=== PATIENT | female | born 1955 | race Caucasian/White ===

== ENCOUNTER 2020-02-11 00:08 | Outpatient (CLI) | payer OTHER, SELFPAY ==
[2020-02-11 16:10] LABS: SARS-CoV-2 RNA PCR Negative
== END 2020-02-11 00:09 | disposition home or self-care (01) ==
LOC: ANHCOVIDDT 00:08
PROVIDERS: PCP Internal Medicine; Visit Provider Orthopaedic Surgery
DX: Z01.818 Encounter for other preprocedural examination (principal); Z11.59 Encounter for screening for other viral diseases
CPT/HCPCS: 87635; C9803; U0003

== ENCOUNTER 2020-02-13 01:08 | Day surgery (SDC) | payer OTHER, SELFPAY ==
[2020-02-04 15:13] VITALS: BMI 44.1
[2020-02-13] VITALS (9 sets, daily range): BP systolic 157–204; BP diastolic 91–109; PULSE 70–100; RESP 11–20; TEMP 36.7–37.4; O2SAT 97–99
[2020-02-13] MEDS: CELECOXIB 200 MG CAPSULE PO (06:15)
[2020-02-13] MEDS: LACTATED RINGERS 1,000 ML 30 ML IV CONT (06:40)
--- NOTE | 2020-02-13 07:01 | WPDANESEPPF ---
Anes - Initial Pre Proc Eval Procedure: Operation Date: 02/13/20 07:30 Proposed Procedures p Left Knee Arthroscopy, Possible Lateral Release, Proceed As Indicated - Cristhian Muñiz MD Date/Time: 02/13/20 07:01 Surgeon: Cristhian Muñiz MD Pre Op Diagnosis: Left Knee Severe Chondromalacia Of Patella Patient Data Age: 64 Gender: F Height: 5 ft 8 in Weight: 128 kg Allergies Allergy/AdvReac Type Severity Reaction Status Date / Time Penicillins Allergy Severe Difficulty Verified 02/13/20 06:29 Breathing Home Medications Medication Instructions Recorded Confirmed Type aspirin 81 mg tablet,delayed 81 mg PO DAILY 08/07/19 02/13/20 History release cyclobenzaprine 10 mg tablet 10 mg PO TID 08/07/19 02/13/20 History lisinopril 40 mg tablet 40 mg PO DAILY 08/07/19 02/13/20 History tramadol 50 mg tablet 50 mg PO Q6H PRN #30 tablet 12/19/19 02/13/20 Rx clonidine HCl 0.2 mg PO BID 02/04/20 02/13/20 History gabapentin 900 mg PO TID 02/04/20 02/13/20 History trazodone 150 mg PO HS 02/04/20 02/13/20 History Patient hx anesthesia problems: none Family hx anesthesia problems: none PMFSH Past Medical History Medical History Chondromalacia patellae, left knee Right ankle pain Surgical History Surgical History History of ankle surgery S/P ankle fusion Family History Family History Other Family history of arthritis Family history of malignant neoplasm Hypertension Social History Social History Smoking status: Former smoker Smoking end date: 09/19/10 Alcohol intake: never Anes - Eval Final PreProcedure Day of Procedure 02/13/20 07:01 Patient weight: morbidly obese Heart: regular rate and rhythm Lungs: decreased breath sounds Airway: Mallampati scale class III Neurological: alert and oriented Last oral intake: >/= 8 hours ASA classification: III Emergent: no Anesthetic plan: proceed Anesthesia type and monitoring: general LMA and standard monitoring Informed Consent: The patient's anesthetic plan and its attendant risks and benefits were discussed with the patient/family/POA. Questions were solicited and answers provided to the satisfaction of the patient/family/POA.
--- NOTE | 2020-02-13 07:37 | WPDHPUPDATE1 ---
History and Physical Update Update Date/Time: 02/13/20 07:37 History and Physical has been reviewed, including an updated exam of the patient. There are NO changes in the patient's condition. Risks, benefits, and alternatives have been discussed and questions answered. Patient agrees to proceed with procedure.
[2020-02-13] MEDS: CLINDAMYCIN 900 MG/NS 50 ML 900 MG/50 ML PIGGYBACK 50 MG IVPB (07:44)
--- NOTE | 2020-02-13 09:34 | PM.OP ---
Procedure Note - Brief Procedure Note - Brief Date of procedure: 02/13/20 Pre-op diagnosis: Left Knee Severe Chondromalacia Of Patella Post-op diagnosis: other (MEDIAL MENISCUS TEAR, LATERAL MENISCUS TEAR) Procedure performed: LEFT KNEE SCOPE Anesthesia: GETA Surgeon: Cristhian Muñiz MD Estimated blood loss (mL): 5 Complications: No immediate complications Condition: stable Disposition: PACU
[2020-02-13] MEDS: LABETALOL HCL INJ 100 MG/20 ML VIAL IV PUSH (10:24)
--- NOTE | 2020-02-13 10:54 | SUR.PHASEII ---
1025 HIGH BP 204/103,CALLED DR LEONARD ,ORDERS RECEIVED AND LABETOLOL GIVEN.
--- NOTE | 2020-02-13 12:17 | OP_ITS ---
DATE OF PROCEDURE: 02/13/2020 PREOPERATIVE DIAGNOSIS: Left knee severe chondromalacia. POSTOPERATIVE DIAGNOSIS: Left knee severe chondromalacia with medial meniscus tear and lateral meniscus tear. PROCEDURE: Left knee arthroscopy with partial medial meniscectomy, partial lateral meniscectomy, major synovectomy,and chondroplasty. ANESTHESIA: General. COMPLICATIONS: None. INDICATIONS: This is a 64-year-old female with severe chondromalacia of the patella. She had tried physical therapy and pain medication. She was unable to control her pain. She was indicated for left knee arthroscopy. DESCRIPTION OF PROCEDURE: The patient was taken to the operative room in stable condition and placed in supine position. General anesthesia was induced and the left lower extremity was prepped and draped sterilely from the toes to the thigh. Superomedial portal was used for an outflow cannula. Inferolateral portal was used for the camera and the camera was introduced. There was a significant amount of synovitis without the whole superior compartment and the medial compartment. The patella had severe chondromalacia. There was full-thickness bone loss on the lateral trochlea of the femur. The medial compartment was entered, there was a complex tear of the medial meniscus. A medial portal was established. A shaver and a biter were introduced and the medial meniscus tear, which was resected down to a smooth base. Limited chondroplasty was performed as well on the medial femoral condyle. Next, the ACL was identified and it was intact. Lateral compartment was entered, there was significant amount of synovitis in the lateral compartment that was resected with a shaver. The lateral meniscus was preserved, there was a complex tear of the lateral meniscus. This tear was resected with a shaver and a biter until there was a smooth base. Then, limited chondroplasty was performed on the lateral femoral condyle. Next, the synovectomy was performed in the superomedial compartment and then, the patella underwent chondroplasty down to a smooth base. The trochlea underwent chondroplasty as well as the femoral groove down to the intercondylar notch. There was a full-thickness defect on the superior and superolateral trochlea. The patella tracked without any tilt and there was no reason for lateral release. The instruments were removed after thorough irrigation of the knee joint. The wounds were approximated with 4-0 nylon suture. Sterile dressing was applied and the patient was extubated. D I MT: Camila
== END 2020-02-13 10:55 | disposition home or self-care (01) ==
PROVIDERS: PCP Internal Medicine; Visit Provider Orthopaedic Surgery
PROC: (CPT 29870; principal; 2020-02-13 07:30)
DX: M94.262 Chondromalacia, left knee (principal); M23.362 Other meniscus derangements, other lateral meniscus, left knee; M23.332 Other meniscus derangements, other medial meniscus, left knee; M65.862 Other synovitis and tenosynovitis, left lower leg; Z79.82 Long term (current) use of aspirin; E66.01 Morbid (severe) obesity due to excess calories; Z68.41 Body mass index [BMI] 40.0-44.9, adult
CPT/HCPCS: 29880; A9270; J0131; J1100; J2250; J2405; J2704; J3010; J7120

== ENCOUNTER 2020-08-28 09:28 | Outpatient (CLI) | payer OTHER, SELFPAY ==
--- NOTE | 2020-08-28 11:30 | NEURO_ITS ---
Impression: # Complains of right foot numbness. # Normal nerve conduction study including F-waves. # Normal needle/EMG exam. # Problem could be related to small fiber neuropathy; Higher involvement needs to be ruled out. Nerve Conduction Studies Anti Sensory Summary Table Stim Site NR Peak (ms) P-T Amp (?V) Site1 Site2 Delta-P (ms) Dist (cm) Delmar (m/s) Left Sup Fibular Anti Sensory (Ant Lat Mall) 14 cm 3.4 5.1 14 cm Ant Lat Mall 3.4 16.0 47 Right Sup Fibular Anti Sensory (Ant Lat Mall) 14 cm 3.2 29.6 14 cm Ant Lat Mall 3.2 16.0 50 Left Sural Anti Sensory (Lat Mall) Calf 3.7 10.7 Calf Lat Mall 3.7 16.0 43 Right Sural Anti Sensory (Lat Mall) Calf 4.0 23.1 Calf Lat Mall 4.0 16.0 40 Motor Summary Table Stim Site NR Onset (ms) O-P Amp (mV) Site1 Site2 Delta-0 (ms) Dist (cm) Delmar (m/s) Left Peroneal Motor (Vastus Med) Ankle 4.5 2.6 Popit Ankle 9.3 39.0 42 Popit 13.8 1.7 Right Peroneal Motor (Vastus Med) Ankle 4.1 1.9 Popit Ankle 8.0 36.0 45 Popit 12.1 1.9 Left Tibial Motor (Abd Pineda Brev) Ankle 4.7 6.7 Knee Ankle 8.5 41.0 48 Knee 13.2 4.4 Right Tibial Motor (Abd Pineda Brev) Ankle 4.1 0.8 Knee Ankle 8.7 39.0 45 Knee 12.8 1.2 F Wave Studies NR F-Lat (ms) L-R F-Lat (ms) Left Peroneal (Mrkrs) (EDB) 50.64 0.12 Right Peroneal (Mrkrs) (EDB) 50.76 0.12 Left Tibial (Mrkrs) (Abd Hallucis) 52.47 0.16 Right Tibial (Mrkrs) (Abd Hallucis) 52.63 0.16 EMG Side Muscle Nerve Root Ins Act Fibs Amp Dur Recrt Comment Right AntTibialis Dp Br Fibular L4-5 Nml Nml Nml Nml Nml Right Gastroc Tibial S1-2 Nml Nml Nml Nml Nml Right Fibularis Long Sup Br Fibular L5-S1 Nml Nml Nml Nml Nml Right Flex Dig Long Tibial L5-S2 Nml Nml Nml Nml Nml Right Ext Dig Brev Dp Br Fibular L5, S1 Nml Nml Nml Nml Nml Left 1stDorInt Ulnar C8-T1 Nml Nml Nml Nml Nml Left Ext Indicis Radial (Post Int) C7-8 Nml Nml Nml Nml Nml Left Ext Digitorum Radial (Post Int) C7-8 Nml Nml Nml Nml Nml Left BrachioRad Radial C5-6 Nml Nml Nml Nml Nml Left PronatorTeres Median C6-7 Nml Nml Nml Nml Nml Left Abd Poll Brev Median C8-T1 Nml Nml Nml Nml Nml MTDD
== END 2020-08-28 09:29 | disposition home or self-care (01) ==
PROVIDERS: PCP Internal Medicine; Visit Provider Orthopaedic Surgery
DX: G57.91 Unspecified mononeuropathy of right lower limb (principal)
CPT/HCPCS: 95886; 95910

== ENCOUNTER 2021-03-24 15:35 | Inpatient (IN) | payer OTHER, SELFPAY ==
[2021-03-24] VITALS (32 sets, daily range): BP systolic 38–147; BP diastolic 22–113; PULSE 92–123; RESP 12–22; TEMP 36.3; O2SAT 90–100; BMI 48.4
--- NOTE | ~2021-03-24 | NM_ITS ---
NM pulmonary perfusion INDICATION: Chest pain and shortness of breath TECHNIQUE: Following ventilation scan, 3.3 mCi Tc 99m MAA was injected intravenously for perfusion im ages. Multiple images were then acquired. COMPARISON: Chest x-ray dated 03/24/2021 FINDINGS: The comparison chest radiograph demonstrates mild interstitial edema. Left basilar consolid ation may represent atelectasis or pneumonia. Possible small left effusion. The perfusion scan demons trates decreased perfusion in the left lung, although no focal defects are identified. There is symme trically decreased perfusion in the lung apices. IMPRESSION: 1: Decreased perfusion in the left lower lobe and lung apices. Reviewed, dictated and finalized at location A.
--- NOTE | ~2021-03-24 | XR_ITS ---
XR chest port-a-cath/central 03/24/2021 17:00 Indication: Line placement Procedure: AP portable chest Comparison: 06/26/2018 Findings: Right subclavian central venous catheter tip near the cavoatrial junction. Cardiomegaly wit h mild interstitial edema. Possible small left effusion. No pneumothorax. Left basilar atelectasis. Impression: 1: Cardiomegaly with mild interstitial edema. Reviewed, dictated and finalized at location A. Impression: 1: Cardiomegaly with mild interstitial edema.
--- NOTE | ~2021-03-24 | US_ITS ---
EXAMINATION: US right upper quadrant DATE: 03/25/2021 12:16 INDICATION: Abdominal pain. Nausea and vomiting. TECHNIQUE: Multiple grayscale and Doppler ultrasound images of the abdomen were obtained. COMPARISON: CT abdomen and pelvis 03/24/2021 FINDINGS: The visualized portions of the head and body of the pancreas are normal. The liver is servando l without focal lesion. No liver surface nodularity. There is normal flow in main portal vein. The ga llbladder is normal in size. No gallstones or gallbladder wall thickening. There was no sonographic M urphy sign. The common duct is normal and measures 2 mm. IMPRESSION: 1. Normal right upper quadrant ultrasound. Reviewed, dictated and finalized at location A.
--- NOTE | ~2021-03-24 | US_ITS ---
EXAMINATION: US renal BI DATE: 03/25/2021 12:17 INDICATION: Acute renal failure. TECHNIQUE: Multiple ultrasound grayscale images of the kidneys were obtained. COMPARISON: CT abdomen and pelvis 03/24/2021 FINDINGS: The right kidney measures 9.7 x 5.2 x 5.6 cm. The left kidney measures 10.6 x 4.2 x 5.9 cm. The kidne ys demonstrate normal parenchymal echogenicity. There is no hydronephrosis. The bladder is decompress ed by a Galvan catheter. IMPRESSION: 1. Normal kidneys. No hydronephrosis. Reviewed, dictated and finalized at location A.
--- NOTE | ~2021-03-24 | CT_ITS ---
EXAMINATION: CT chest abdomen pelvis wo con DATE: 03/24/2021 18:37 CDT INDICATION: Shortness of breath, abdominal pain and chest pain TECHNIQUE: Computed tomography (CT) of the chest, abdomen, and pelvis was performed without intraveno us contrast. The dose-length product was 1778.54 mGy-cm. Automated exposure control and iterative rec onstruction technique were employed. COMPARISON: CT dated 11/08/2017 FINDINGS: CHEST CT: There is atherosclerosis of the aorta. No thoracic lymphadenopathy. There is atherosclerosis of the a margarita. Small left pleural effusion. There is irregular soft tissue in the left breast with either foca l coarse calcification or tissue marker. There is dependent atelectasis. There is an irregular subsol id 7 mm right lower lobe nodule. Small hiatal hernia. ABDOMEN/PELVIS CT: The liver, spleen, pancreas, adrenal glands and kidneys are unremarkable. No renal stones or hydronep hrosis. Gallbladder is present. There are changes of ventral abdominal wall hernia repair. Gallbladde r is distended. There is sequela of epiploic appendagitis. No evidence for bowel obstruction. IMPRESSION: 1. Irregular soft tissue left breast. Recommend follow-up diagnostic mammogram and left breast ultras ound. 2: Dependent basilar atelectasis with small left effusion. 3: Irregular some solid 7 mm right lower lobe nodule. Follow-up CT chest and 6 months recommended. 4: No acute abdominal abnormality. Reviewed, dictated and finalized at location A. IMPRESSION: 1. Irregular soft tissue left breast. Recommend follow-up diagnostic mammogram and left breast ultrasound. 2: Dependent basilar atelectasis with small left effusion. 3: Irregular some solid 7 mm right lower lobe nodule. Follow-up CT chest and 6 months recommended. 4: No acute abdominal abnormality.
--- NOTE | 2021-03-24 16:21 | PC.NURSE ---
Dr Davison at bedside. Consented for central line placement
--- NOTE | 2021-03-24 16:25 | ECG_ITS ---
Measurements Intervals [place] Rate: 101 P: 67 AR: 150 QRS: -47 QRSD: 102 T: 77 QT: 328 QTc: 427 Interpretive Statements SINUS TACHYCARDIA LEFT AXIS DEVIATION POOR R WAVE PROGRESSION, ANTERIOR LEADS BORDERLINE ST-T WAVE ABNORMALITY- I, II, AVL, V1-V2 BORDERLINE ECG Electronically Signed On 03-24-2021 17:18:14 CDT by Dilan Bloom D.O.
[2021-03-24 16:37] LABS: Alveolar/Arterial O2 Gradient 79.8 mmHg; Base Excess ABG -10.9 mEq/l (+/-2.0); Device NASAL CANNULA; Fractional Inspired Oxygen 32 %; HCO3 ABG 15.7 mEq/l (22.0-26.0); Methemoglobin ABG 0.6 %THb (0-1.5); Oxygen Saturation ABG 96.9 % (95.0-100.0); Oxyhemoglobin 95.5 % THb (90.0-100.0); PCO2 ABG 37.6 mmHg (35.0-45.0); PO2 ABG 104.4 mmHg (80.0-100.0); PO2 FiO2 Ratio Arterial Blood 3.26 %; Reduced Hemoglobin 2.9 %THb (0-5.0); Site Drawn RIGHT BRACHIAL; Total Hemoglobin 16.3 g/dL (12.0-18.0); pH ABG 7.239 (7.350-7.450)
--- NOTE | 2021-03-24 16:54 | ED.GENADULT ---
HPI - General Adult General Chief complaint: Chest Pain Stated complaint: weakness/sob Time Seen by Provider: 03/24/21 16:03 Related Data Home Medications Medication Instructions Recorded Confirmed aspirin 81 mg tablet,delayed 81 mg PO DAILY 08/07/19 02/09/21 release cyclobenzaprine 10 mg tablet 10 mg PO TID 08/07/19 02/09/21 lisinopril 40 mg tablet 40 mg PO DAILY 08/07/19 02/09/21 clonidine HCl 0.2 mg PO BID 02/04/20 02/09/21 gabapentin 900 mg PO TID 02/04/20 02/09/21 trazodone 150 mg PO HS 02/04/20 02/09/21 tramadol 50 mg tablet 50 mg PO Q6H PRN 03/27/20 02/09/21 Allergies Allergy/AdvReac Type Severity Reaction Status Date / Time Penicillins Allergy Severe Difficulty Verified 02/09/21 11:30 Breathing PMFSH Past Medical History Medical History Chondromalacia patellae, left knee Neuritis of right lower extremity Peripheral neuropathy Radiculopathy of leg Right ankle pain Surgical History Surgical History History of ankle surgery S/P ankle fusion Family History Family History Other Family history of arthritis Family history of malignant neoplasm Hypertension Social History Social History (Updated 02/09/21 @ 11:43 by Erma Ramirez MA) Smoking status: Former smoker Smoking end date: 09/19/10 Alcohol intake: never Substance use: never Gender identity (if verbalized by the patient): Female Course Vital Signs Vital signs: Vital Signs Pulse Rate 103 H 03/24/21 16:00 Respiratory Rate 18 03/24/21 16:00 Pulse Oximetry 100 03/24/21 16:00 Pulse Rate 101 H 03/24/21 16:07 Respiratory Rate 18 03/24/21 16:00 Pulse Oximetry 100 03/24/21 16:13 Procedures Central Line Placement Right SC: Central Line Date: 03/24/21 Central Line Time: 16:50 Discussed w/ the patient/family/POA,the placement of a central venous catheter, including its clinical necessity/indication & associated potential risks, benifits and alternatives.: Yes The patient/family/POA understand(s) and acknowledge(s) the need to proceed with central venous catheter insertion as an important element of the patient's clinical management.: Yes Time Out Performed: Yes Patient Placed on Monitor/Pulse Ox: Yes Max. Sterile Barrier Technique: Caps, large sterile sheet and hand hygiene Central Line Prep: 2% chlorhexidine scrub and sterile drapes applied Technique: seldinger Local Anesthetic: lidocaine 1% Amount of anesthesia used (mL): 2 Ultrasound Used for Placement: No Central Line Lumen Inserted: triple Post Procedure: sutured in place Medical Decision Making Vital Signs Vital Signs: Vital Signs Pulse Rate 103 H 03/24/21 16:00 Respiratory Rate 18 03/24/21 16:00 Pulse Oximetry 100 03/24/21 16:00 Pulse Rate 101 H 03/24/21 16:07 Respiratory Rate 18 03/24/21 16:00 Pulse Oximetry 100 03/24/21 16:13 Lab Data Labs: Lab Results 03/24/21 Range/Units 16:28 Methemoglobin 0.6 (0-1.5) %THb ABG Data ABG results: 03/24/21 16:28 Puncture Site Right brachial ABG pH 7.239 L* ABG pCO2 37.6 ABG pO2 104.4 H ABG PO2/FiO2 Ratio 3.26 ABG HCO3 15.7 L ABG O2 Saturation 96.9 ABG O2 Content 22.0 ABG Base Excess -10.9 A-a Gradient 79.8 Oxyhemoglobin 95.5 Carboxyhemoglobin 1.0 Reduced Hemoglobin 2.9 Total Hemoglobin 16.3 O2 Delivery Device Nasal cannula O2 Liters/Min 4.0 FiO2 32 Discharge Plan Discharge Prescriptions: No Action aspirin 81 mg tablet,delayed release (DR/EC) 81 mg PO DAILY RF: 0 lisinopril 40 mg tablet 40 mg PO DAILY RF: 0 cyclobenzaprine 10 mg tablet 10 mg PO TID RF: 0 clonidine HCl 0.1 mg tablet 0.2 mg PO BID RF: 0 trazodone 150 mg Tablet 150
--- NOTE | 2021-03-24 16:55 | ED.GENADULT ---
HPI - General Adult General Chief complaint: Chest Pain Stated complaint: weakness/sob Time Seen by Provider: 03/24/21 16:03 Source: patient History of Present Illness HPI narrative: Patient is a 65 y/o female complaining of mid sternal chest pain starting 3 days ago. She describes her pain as sharp and rates it as 9/10. There is no pain radiation. There is no alleviating or exacerbating factor. She also has SOB. She states that she had fever of 102 earlier today. She is not on O2 at home. She also has been having abdominal pain and vomiting. Related Data Home Medications Medication Instructions Recorded Confirmed cyclobenzaprine 10 mg tablet 10 mg PO TID 08/07/19 03/24/21 lisinopril 40 mg tablet 40 mg PO DAILY 08/07/19 03/24/21 clonidine HCl 0.2 mg PO BID 02/04/20 03/24/21 gabapentin 900 mg PO TID 02/04/20 03/24/21 trazodone 150 mg PO HS 02/04/20 03/24/21 tramadol 50 mg tablet 50 mg PO Q6H PRN 03/27/20 03/24/21 quetiapine 100 mg PO DAILY 03/24/21 03/24/21 Allergies Allergy/AdvReac Type Severity Reaction Status Date / Time Penicillins Allergy Severe Difficulty Verified 02/09/21 11:30 Breathing Review of Systems Review of Systems: All systems reviewed & are unremarkable except as noted in HPI and below Constitutional: Constitutional: Denies chills, Reports fever(s), Denies headache(s) and Denies weakness Eyes: Eyes: Denies blurry vision ENT: Denies headache(s) and Denies neck pain Cardiovascular: Cardiovascular: Reports chest pain and Reports dyspnea Respiratory: Respiratory: Reports cough and Reports dyspnea Gastrointestinal: Gastrointestinal: Reports abdominal pain, Denies diarrhea, Reports nausea and Reports vomiting Genitourinary: Genitourinary: Denies hematuria and Denies dysuria Musculoskeletal: Musculoskeletal: Denies back pain and Denies neck pain Neurologic: Denies headache(s) and Denies weakness [facility] Past Medical History Medical History (Updated 03/29/21 @ 10:55 by Lynne Davison MD) Chondromalacia patellae, left knee COPD (chronic obstructive pulmonary disease) COVID-19 vaccine series completed Depression Essential hypertension Glaucoma Hypercholesterolemia Neuritis of right lower extremity Obstructive sleep apnea Peripheral neuropathy Pyuria Radiculopathy of leg Right ankle pain Surgical History Surgical History H/O ventral hernia repair History of incision and drainage abdominal wall abscess History of tonsillectomy History of tubal ligation S/P ankle fusion Status post cataract extraction of both eyes with insertion of intraocular lens Family History Family History Other Adopted Family history of arthritis Family history of malignant neoplasm Hypertension Social History Social History Social History: She lives in [place] with her common-law , Mansoor Perez. They have been together for over 20 years. She has a daughter and a son (who are 29 and 32 years old and reportedly healthy). 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 She used to smoke 2-3 packs of cigarettes per day but quit smoking in 2016. She used to drink 2-3 beers a day but also quit drinking alcohol in 2016. She ambulates without assistance. She has a personal attendant paid for by the [facility]. primary care physician: Dr. Akira Alfaro code status: full code Surrogate decision maker: Mansoor Perez Smoking packs per day: 2 Smoking cigarettes per day: 40.0 Years smoked: 40 Smoking pack-years: 80.00 Smoking status: Former smoker Alcohol intake: former Substance use: never Gender identity (if verbalized by the patient): Female Spiritual care concerns: No Exam Const: General: well developed, in distress and ill appearing Orientation/consciousness: oriented to pe
[2021-03-24 17:22] LABS: Basophils Percent Auto 0.1 % (0.2-1.2); Eosinophils Percent Auto 0.2 % (0-4.4); Hematocrit 46.9 % (37.0-47.0); Hemoglobin 15.7 g/dL (12.0-15.0); Immature Granulocyte Absolute 0.12 K/mm3 (0.00-0.031); Immature Granulocyte Percent A 0.8 % (0-0.5); Lymphocytes Absolute Auto 1.36 K/mm3 (0.9-3.2); Lymphocytes Percent Auto 8.7 % (18.3-44.2); Mean Corpuscular HGB Conc 33.5 g/dl (32-36); Mean Corpuscular Volume 92.5 fl (80-100); Mean Platelet Volume 9.8 fl (7.4-10.4); Monocytes Absolute Auto 1.1 K/mm3 (0.1-0.6); Monocytes Percent Auto 6.9 % (2.6-8.5); Neutrophils Percent Auto 83.3 % (45.5-73.1); Platelet Count Result 332 k/mm3 (150-375); Red Blood Count 5.07 M/mm3 (4.2-5.4); Red Cell Distribution Width 13.2 % (11.5-14.5); White Blood Count 15.6 K/mm3 (4.5-10.0)
[2021-03-24 17:33] LABS: Lactic Acid Reflex 1.6 mmol/L (0.7-2.1)
[2021-03-24 17:44] LABS: NT Pro B Type Natriuretic Pept 887 pg/mL (5-100)
[2021-03-24 17:46] LABS: Alanine Aminotransferase 60 U/L (4-35); Albumin Level 3.5 g/dL (3.5-5.1); Alkaline Phosphatase 79 U/L (38-126); Anion Gap 20 mmol/L (8-16); Aspartate Amino Transferase 76 U/L (14-36); Bilirubin,Total 0.7 mg/dL (0.2-1.3); Calcium 8.4 mg/dL (8.4-10.2); Carbon Dioxide 17 mmol/L (22-30); Chloride 92 mmol/L (98-107); Estimated CRCL calculation 7 ml/min; Estimated Glomerular Filt Rate 3; Glucose 131 mg/dL (65-105); Potassium 5.3 mmol/L (3.4-5.0); Sodium 129 mmol/L (137-145)
[2021-03-24 17:48] LABS: Troponin I 0.051 ng/mL (0.000-0.034)
--- NOTE | 2021-03-24 18:02 | PC.NURSE ---
Duplicate orders for fluid bolus. Pt was given 4100 ML of normal saline
[2021-03-24] MEDS: SODIUM BICARBONATE 8.4% 50 MEQ/50 ML VIAL IV PUSH (18:08)
[2021-03-24 18:11] LABS: Blood Urea Nitrogen 139 mg/dL (7-17)
[2021-03-24 18:16] LABS: INR 1.7; Partial Thromboplastin Time 38.1 SECONDS (22.3-36.8); Prothrombin Time 19.7 Seconds (11.1-14.7)
[2021-03-24 18:19] LABS: Lipase 407 U/L (23-300)
--- NOTE | 2021-03-24 18:20 | PC.NURSE ---
Pt being taken to CT scan by tech
[2021-03-24 18:32] LABS: D Dimer 6.74 ug/mL (<0.48)
[2021-03-24] MEDS: MORPHINE SULFATE (*CRX) 4 MG/ML INJ IV PUSH (18:55)
[2021-03-24 18:56] LABS: Add Urine Microscopic? YES; Appearance Urine Clear (Clear); Bilirubin Urine Negative (Negative); Blood Urine 2+ (Negative); Color Urine Yellow (Yellow); Glucose Urine UA Negative (Negative); Ketones Urine Negative (Negative); Leukocyte Esterase Ur Negative LEU/UL (Negative); Mucus Urine Rare /lpf; Nitrate Urine Negative (Negative); Protein Urine 1+ mg/dL (Negative); RBC Urine 0-2 /hpf (0-2); Specific Grav Ur 1.015 (1.001-1.035); Urobilinogen Urine Negative mg/dL (<2.0); WBC Urine 0-3 /hpf
[2021-03-24 20:09] LABS: Troponin I 0.042 ng/mL (0.000-0.034)
--- NOTE | 2021-03-24 21:28 | PC.NURSE ---
Pt to VQ scan at this time.
--- NOTE | 2021-03-24 22:34 | ADMGEN ---
This patient, Taylor Daugherty, was admitted to IMU Room 209-01 AT 2215. Patient/family oriented to hospital policies and general routines including ID bracelet, bed and alarms, visiting hours, pain management, procedures, bathroom and other care routines, personal items, smoking policy, room service/diet, and visiting hours. Information on how to activate the Rapid Response Team has been discussed. Patient/Family are encouraged to report perceived risks to care and to ask questions if they do not understand what they are told or what they should do.
[2021-03-24] MEDS: SODIUM BICARBONATE 8.4% 150 MEQ in DEXTROSE 5% 1,000 ML 950 ML 100 MEQ IV CONT (23:19)
[2021-03-25] VITALS (16 sets, daily range): BP systolic 96–118; BP diastolic 53–75; PULSE 77–97; RESP 16–24; TEMP 36.1–36.5; O2SAT 95–100
[2021-03-25 00:19] LABS: Troponin I 0.044 ng/mL (0.000-0.034)
[2021-03-25 00:20] LABS: Creatine Kinase 2141 U/L (30-135)
--- NOTE | 2021-03-25 01:58 | PM.IMHP ---
H&P: HPI History of Present Illness Date/Time: 03/25/21 01:58 Chief Complaint: weakness Narrative: 65-year-old female with past medical history of hypertension, hyperlipidemia, morbid obesity, COPD, fibromyalgia and chronic pain who presented to the ER via EMS with nausea and vomiting, chest pain and shortness of breath. The patient reports that she had 2 days of chest pain but when she refer to chest pain she is actually gesturing to her epigastric region. She reports that the pain is sharp and a 9/10 in intensity. The pain is worse with eating or drinking. It is been accompanied by emesis of dark material. She has also had some associated dry heaves. She reports that she has o'clock occasional cough that is unchanged from her baseline. she quit smoking 5 years ago. She has not had a COVID vaccine. She denies any known ill contacts. She denies any diarrhea or changes in bowel habits. She has not noticed a change in her urine output. However when the patient arrived to the ER she was unable to produce a urine specimen and had a straight cath that obtained over 500 mL of urine. When she arrived to the intermediate unit the patient was again having difficulty producing a urine specimen and had almost 500 mL of urine when Galvan catheter was placed. She denies any dysuria, hematuria or foul-smelling urine. She reported a fever of 102 that started on the 6th just before coming to the ER. She has been having an occasional headache but nothing beyond her usual. She has chronic right lower extremity swelling that is unchanged from baseline. She reports the swelling is associated with her prior ankle surgery. She does not use oxygen at home. She does have obstructive sleep apnea but is intolerant to CPAP therapy. Patient was markedly hypotensive on arrival to the ER with systolic blood pressures reportedly down around 40. She received 3 L of isotonic fluids with normalization of her blood pressure. She had a right-sided central line placed by ER staff. Review of Systems Review of Systems: Narrative: 12 systems were reviewed with pertinent positives and negatives per HPI. Except as documented in the HPI, all other systems were reviewed and are negative. [facility] Past Medical History Medical History (Updated 03/25/21 @ 04:06 by Lana Burch DO) Chondromalacia patellae, left knee COPD (chronic obstructive pulmonary disease) Depression Essential hypertension Glaucoma Hypercholesterolemia Neuritis of right lower extremity Obstructive sleep apnea Peripheral neuropathy Radiculopathy of leg Right ankle pain Surgical History Surgical History (Updated 03/25/21 @ 03:49 by Lana Burch DO) H/O ventral hernia repair History of incision and drainage abdominal wall abscess History of tonsillectomy History of tubal ligation S/P ankle fusion Family History Family History Other Adopted Family history of arthritis Family history of malignant neoplasm Hypertension Social History Social History (Updated 03/25/21 @ 03:55 by Lana Burch DO) Social History: She lives in [place] with her common-law , Mansoor Perez. They have been together for over 20 years. She has a daughter and a son (who are 29 and 32 years old and reportedly healthy). 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 She used to smoke 2-3 packs of cigarettes per day but quit smoking in 2016. She used to drink 2-3 beers a day but also quit drinking alcohol in 2016. She ambulates without assistance. She has a catering assistant paid for by the [facility]. primary care physician: Dr. Akira Alfaro code status: full code Surrogate decision maker: Mansoor Perez Smoking packs per day: 2 Smoking cigarettes per day: 40.0 Years smoked: 40 Smoking pack-years: 80.00 Smoking status: Former smoker Alcohol intake: former Substance use: never Gender
--- NOTE | 2021-03-25 03:46 | PC.NURSE ---
patient has not had covid or have been vaccinated.
[2021-03-25 06:02] LABS: Eosinophil Urine None Seen % (None Seen)
[2021-03-25 09:06] LABS: Creatinine Urine 115.8 mg/dL
[2021-03-25] MEDS: ENOXAPARIN 30 MG/0.3 ML SYRINGE SUB-Q ×2 (09:32→20:30)
[2021-03-25] MEDS: QUEtiapine FUMARATE 100 MG TABLET PO (09:32)
[2021-03-25] MEDS: TOLNAFTATE 1% POWDER 45 GM BTL 1 APPLIC TOPICAL ×2 (09:32→20:38)
[2021-03-25 09:52] LABS: Hematocrit 40.2 % (37.0-47.0); Hemoglobin 13.4 g/dL (12.0-15.0); Mean Corpuscular HGB Conc 33.3 g/dl (32-36); Mean Corpuscular Hemoglobin 30.5 pg (26-34); Mean Corpuscular Volume 91.6 fl (80-100); Mean Platelet Volume 9.7 fl (7.4-10.4); Platelet Count Result 248 k/mm3 (150-375); Red Blood Count 4.39 M/mm3 (4.2-5.4); White Blood Count 10.9 K/mm3 (4.5-10.0)
[2021-03-25 09:54] LABS: Potassium Urine Random 45.9 meq/L; Sodium Urine Random 49 meq/L
[2021-03-25 10:40] LABS: Albumin Level 2.9 g/dL (3.5-5.1); Anion Gap 15 mmol/L (8-16); Calcium 8.1 mg/dL (8.4-10.2); Carbon Dioxide 20 mmol/L (22-30); Chloride 98 mmol/L (98-107); Estimated CRCL calculation 8 ml/min; Estimated Glomerular Filt Rate 4; Glucose 96 mg/dL (65-105); Magnesium 1.9 mg/dL (1.6-2.3); Phosphorus 10.4 mg/dL (2.5-4.5); Potassium 4.6 mmol/L (3.4-5.0); Sodium 133 mmol/L (137-145)
[2021-03-25 10:46] LABS: Blood Urea Nitrogen 125 mg/dL (7-17)
--- NOTE | 2021-03-25 12:58 | PM.IMPN ---
Progress Note: A&P Assessment and Plan (1) Hypotension (arterial): Qualifiers: Hypotension type: hypotension due to hypovolemia Qualified Code(s): I95.89 - Other hypotension; E86.1 - Hypovolemia Code(s): I95.9 - Hypotension, unspecified Status: Acute Assessment and Plan: Patient with profound HoTN on admission to 38/24. BP improved with 3L IV fluids in the ED and BP better controlled today. She takes clonidine and lisinopril at home which are on hold. Etiology unclear but consider severe dehydration or sepsis or cardiogenic. Sepsis seems less likely but did have fever to 102 prior to admission; no fevers since admission. COVID testing pending. Not on abx currently. Continue IV fluids. Monitor closely (2) Acute renal failure: Qualifiers: Acute renal failure type: unspecified Qualified Code(s): N17.9 - Acute kidney failure, unspecified Code(s): N17.9 - Acute kidney failure, unspecified Status: Acute Assessment and Plan: Cr 11.5 on admission with BUN 139. Suspect related to dehydration with on going lisinopril use coupled with HoTN causing ATN. Suspect n/v related to the worsening renal failure since recent onset but may have accelerated her symptoms. Also with component of urine retention but unclear if this was contributing to the TATE. Cooper does have symptoms of Raynaud so consider also connective tissue disorder. Patient with metabolic acidosis related to the TATE. Cr better today at 9.8 from the IV fluids. The renal US normal. Galvan secured for strict I/O. Appreciate nephrology input (3) Rhabdomyolysis: Code(s): M62.82 - Rhabdomyolysis Status: Acute Assessment and Plan: TCK 2140. Etiology unclear. COVID related? Poor renal clearance but could also be playing a part in her TATE. Continue IV fluids with bicarb. Follow. (4) Urinary retention with incomplete bladder emptying: Code(s): R33.9 - Retention of urine, unspecified Status: Acute Assessment and Plan: When the patient arrived to the ER, she was unable to produce a urine specimen and had a straight cath that obtained over 500 mL of urine. When she arrived on the floor, she was again having difficulty producing a urine specimen and had almost 500 mL of urine when Galvan catheter was placed. Continue Galvan catheter for now. Voiding trial closer to discharge. (5) Metabolic acidosis with increased anion gap and reduced excretion of inorganic acids: Code(s): E87.2 - Acidosis Status: Acute Assessment and Plan: Serum bicarb 17. Related to TATE. Better with Bicarb IV with serum bicarb up to 20. Follow (6) Hyperkalemia: Code(s): E87.5 - Hyperkalemia Status: Acute Assessment and Plan: Potassium 5.3 on admission related to TATE. Potassium better and normal now. Follow (7) Nausea & vomiting: Qualifiers: Vomiting Intractability: non-intractable Vomiting type: unspecified Qualified Code(s): R11.2 - Nausea with vomiting, unspecified Code(s): R11.2 - Nausea with vomiting, unspecified Status: Acute Assessment and Plan: As above. Symptoms better. Start diet and follow. (8) Chest pain: Code(s): R07.9 - Chest pain, unspecified Status: Acute Assessment and Plan: Patient with substernal CP that is pleuritic. Pulmonary perfusion study showing decreased perfusion in the left lower lobe and lung apices. Spoke with radiology who felt this was low probability. EKG showing LAD with poor R wave progression. Trop elevated at 0.051 but trending down now. Will add ASA. Check Echo. (9) Right upper quadrant abdominal pain: Code(s): R10.11 - Right upper quadrant pain Status: Acute Assessment and Plan: Pain better today. RUQ US showing no acute findings. AST/ALT mildly elevated. Lipase 407. Will repeat levels tomorrow. Follow and monitor closely on or
--- NOTE | 2021-03-25 18:40 | PM.CNNEP ---
Assessment and Plan Assessment and plan (1) Acute renal failure: Qualifiers: Acute renal failure type: unspecified Qualified Code(s): N17.9 - Acute kidney failure, unspecified Code(s): N17.9 - Acute kidney failure, unspecified Status: Acute Assessment and Plan: The patient has acute kidney injury. In 2019 her creatinine was normal. labs done since then are unavailable. She does not think she has had any kidney issues though so I suspect that this is peer acute renal failure. The patient had low blood pressure on admission. She also had nausea and vomiting. She also had urinary retention. It is possible that she has a combination of issues involving her kidneys. Dehydration is a possibility. Her hypotension would certainly be playing a role. She has an elevated CPK and normally when would not expect acute kidney injury from rhabdomyolysis unless the CK were above 5000. However she does have blood in the urine without blood cells in the urine suggesting some spillage of the CK in to the urinary system and so could at least have some contribution. Her urinary tension may or may not be playing a role as well. She says that she was making urine before she came in. The patient is being tested for COVID and so could have COVID renal failure as well if this turns out to be positive. Will check urine electrolytes and eosinophils, will repeat a CPK to make sure it is not rising and will get a renal ultrasound. Will give IV fluids with bicarbonate to help the metabolic acidosis and also help if rhabdomyolysis is playing a role. It will also help hydrate her. Her creatinine already came down between last night and this morning will check another 1 in the morning. (2) Rhabdomyolysis: Code(s): M62.82 - Rhabdomyolysis Status: Acute Assessment and Plan: CPK is mildly high. Repeat this. (3) Hypotension (arterial): Qualifiers: Hypotension type: hypotension due to hypovolemia Qualified Code(s): I95.89 - Other hypotension; E86.1 - Hypovolemia Code(s): I95.9 - Hypotension, unspecified Status: Acute Assessment and Plan: Blood pressure is better (4) Nausea & vomiting: Qualifiers: Vomiting type: unspecified Vomiting Intractability: non-intractable Qualified Code(s): R11.2 - Nausea with vomiting, unspecified Code(s): R11.2 - Nausea with vomiting, unspecified Status: Acute Assessment and Plan: her symptoms have improved (5) Hyperkalemia: Code(s): E87.5 - Hyperkalemia Status: Acute Assessment and Plan: she had a high potassium early on. Repeat this morning is okay (6) Metabolic acidosis with increased anion gap and reduced excretion of inorganic acids: Code(s): E87.2 - Acidosis Status: Acute Assessment and Plan: lactic acid is normal. Perhaps this is from uremic poisons. The anion gap has just about normalized. Will continue to follow. (7) Urinary retention with incomplete bladder emptying: Code(s): R33.9 - Retention of urine, unspecified Status: Acute Assessment and Plan: She has a Galvan catheter in History of Present Illness Reason for Consult Consult date: 03/25/21 Chief Complaint Chief complaint: TATE, Chest Pain History of Present Illness Narrative: Karma is a very pleasant 65-year-old lady who has multiple medical problems including COPD, hypertension, hyperlipidemia, sleep apnea, peripheral neuropathy, and depression. The patient came into the hospital because of 2 days of nausea and vomiting along with epigastric pain and fever of up to 102. She did have a little bit of a cough. She did not throw up any blood. Her symptoms gradually worsened over the 2 days. They were not really relieved by anything. She says that she was making urine fine at home. She went to the emergency room and they evaluated her. Her lizzie
[2021-03-25 18:54] LABS: SARS-CoV-2 RNA PCR Negative
[2021-03-25] MEDS: traZODone HCL 50 MG TABLET 150 MG PO (20:30)
[2021-03-25 21:07] LABS: Creatine Kinase 1030 U/L (30-135)
[2021-03-25] MEDS: SODIUM BICARBONATE 8.4% 150 MEQ in DEXTROSE 5% 1,000 ML 950 ML 100 MEQ IV CONT (23:21)
[2021-03-26] VITALS (17 sets, daily range): BP systolic 84–126; BP diastolic 49–64; PULSE 81–97; RESP 16–23; TEMP 35.8–36.8; O2SAT 91–99
--- NOTE | 2021-03-26 | ECHO_ITS ---
Patient Info Name: Taylor Daugherty Age: 65 years : 1955 Gender: Female Ht: 66 in Wt: 300 lbs BSA: 2.60 m2 HR: 87 bpm BP: 126 / 62 mmHg Technical Quality: Good Exam Date: 03/26/2021 7:54 AM Exam Location: [facility] Pulmonary Patient Status: Inpatient Admit Date: 03/24/2021 Staff Ordering Physician: Chucky Bryan MD Recreation Adviser: Alex Calloway RDCS, RT Attending Provider: Lana Burch DO Exam Type: CA echo dop color flow w con Study Info Indications R07.9 - Chest pain, unspecified Complete two-dimensional, color flow and Doppler transthoracic echocardiogram is performed. Summary 1. Complete two-dimensional, color flow and Doppler transthoracic echocardiogram is performed. 2. Left ventricular chamber dimension is normal. 3. Left ventricular systolic function is normal, estimated at 65-70%. 4. The left ventricular diastolic function is grade I diastolic dysfunction. 5. There is mild aortic valve calcification. 6. The aortic valve is trileaflet. Left Ventricle Left ventricular chamber dimension is normal. Left ventricular systolic function is normal, estimated at 65-70%. There is no increased left ventricular wall thickness. Left ventricular septal wall motion is normal. The left ventricular diastolic function is grade I diastolic dysfunction. Right Ventricle Right ventricular chamber dimension is normal. Right ventricular systolic function is normal. Left Atria Left atrial chamber dimension is normal. Right Atria Right atrial chamber dimension is normal. Aortic Valve The aortic valve is trileaflet. There is no aortic valve sclerosis. There is no aortic valve stenosis. There is no aortic valve regurgitation. There is mild aortic valve calcification. Pulmonic Valve The pulmonic valve is not well visualized. There is no pulmonic valve stenosis. There is no pulmonic regurgitation. Mitral Valve The mitral valve has normal leaflets. There is no mitral valve stenosis. There is no mitral valve regurgitation. Tricuspid Valve The tricuspid valve leaflets are normal. There is no significant tricuspid valve stenosis. There is no tricuspid valve regurgitation. Pericardium/Pleural The pericardium appears normal. There is no pericardial effusion. Inferior Vena Cava Normal inferior vena cava with >50% collapse upon inspiration consistent with normal right atrial pressure, 5 mmHg. Aorta The aortic root size at the sinus of Valsalva is normal. The prox ascending aorta size is normal. Left Ventricular Outflow Tract Name Value Normal LVOT 2D LVOT Diameter 2.03 cm LVOT Doppler LVOT Peak Gradient 5 mmHg LVOT Mean Gradient 3 mmHg LVOT VTI 18.83 cm LVOT VTI/AV VTI Ratio 0.89 LVOT Stroke Volume 60.92 ml LVOT CO 5.43 l/min LVOT CI 2.09 L/min/m2 Mitral Valve Name
[2021-03-26 02:18] LABS: Creatinine Urine 97.1 mg/dL; Total Protein Urine Random 23 mg/dL; Ur Ttl Prot Creatinine Ratio 0.24 mg/mg (0-0.20)
[2021-03-26 02:37] LABS: Sodium Urine Random 55 meq/L
[2021-03-26 05:50] LABS: Eosinophil Urine None Seen % (None Seen)
[2021-03-26 05:52] LABS: Basophils Percent Auto 0.3 % (0.2-1.2); Eosinophils Absolute Auto 0.2 K/mm3 (0-0.3); Eosinophils Percent Auto 2.3 % (0-4.4); Hematocrit 35.4 % (37.0-47.0); Immature Granulocyte Absolute 0.06 K/mm3 (0.00-0.031); Immature Granulocyte Percent A 0.8 % (0-0.5); Lymphocytes Absolute Auto 1.37 K/mm3 (0.9-3.2); Lymphocytes Percent Auto 18.2 % (18.3-44.2); Mean Corpuscular HGB Conc 33.9 g/dl (32-36); Mean Corpuscular Hemoglobin 30.4 pg (26-34); Mean Corpuscular Volume 89.6 fl (80-100); Mean Platelet Volume 9.8 fl (7.4-10.4); Monocytes Absolute Auto 0.8 K/mm3 (0.1-0.6); Neutrophils Absolute Auto 5.1 K/mm3 (1.3-6.7); Neutrophils Percent Auto 67.4 % (45.5-73.1); Platelet Count Result 219 k/mm3 (150-375); Red Blood Count 3.95 M/mm3 (4.2-5.4); Red Cell Distribution Width 12.8 % (11.5-14.5); White Blood Count 7.5 K/mm3 (4.5-10.0)
[2021-03-26 06:12] LABS: Alanine Aminotransferase 36 U/L (4-35); Albumin Level 2.6 g/dL (3.5-5.1); Alkaline Phosphatase 58 U/L (38-126); Anion Gap 12 mmol/L (8-16); Aspartate Amino Transferase 47 U/L (14-36); Bilirubin,Total 0.7 mg/dL (0.2-1.3); Blood Urea Nitrogen 119 mg/dL (7-17); Calcium 7.4 mg/dL (8.4-10.2); Carbon Dioxide 28 mmol/L (22-30); Chloride 93 mmol/L (98-107); Creatine Kinase 1006 U/L (30-135); Estimated CRCL calculation 9 ml/min; Estimated Glomerular Filt Rate 5; Glucose 104 mg/dL (65-105); Lipase 383 U/L (23-300); Magnesium 1.7 mg/dL (1.6-2.3); Phosphorus 8.1 mg/dL (2.5-4.5); Potassium 3.8 mmol/L (3.4-5.0); Sodium 133 mmol/L (137-145)
[2021-03-26] MEDS: PERFLUTREN LIPID MICROSPHERES 1.5 ML VIAL DILUTED TO 10 ML TOTAL VOLUME IV PUSH (08:21)
[2021-03-26] MEDS: ENOXAPARIN 30 MG/0.3 ML SYRINGE SUB-Q ×2 (08:29→20:06)
[2021-03-26] MEDS: QUEtiapine FUMARATE 100 MG TABLET PO (08:29)
[2021-03-26] MEDS: ASPIRIN 81 MG CHEWABLE TABLET PO (08:32)
[2021-03-26] MEDS: TOLNAFTATE 1% POWDER 45 GM BTL 1 APPLIC TOPICAL ×2 (08:32→20:07)
[2021-03-26] MEDS: SODIUM BICARBONATE 8.4% 150 MEQ in DEXTROSE 5% 1,000 ML 950 ML 100 MEQ IV CONT (09:31)
--- NOTE | 2021-03-26 09:33 | PM.IMPN ---
Progress Note: A&P Assessment and Plan (1) Hypotension (arterial): Qualifiers: Hypotension type: hypotension due to hypovolemia Qualified Code(s): I95.89 - Other hypotension; E86.1 - Hypovolemia Code(s): I95.9 - Hypotension, unspecified Status: Acute Assessment and Plan: Patient with profound HoTN on admission to 38/24. BP improved with 3L IV fluids in the ED and BP better controlled today. She takes clonidine and lisinopril at home which are on hold. Etiology unclear but consider severe dehydration or sepsis or cardiogenic. Sepsis seems less likely but did have fever to 102 prior to admission; no fevers since admission. CT Ch/A/P showing bibasliar atelectasis but no concerns for infectious source. COVID test negative. Not on abx currently. Continue IV fluids. Monitor closely. (2) Acute renal failure: Qualifiers: Acute renal failure type: unspecified Qualified Code(s): N17.9 - Acute kidney failure, unspecified Code(s): N17.9 - Acute kidney failure, unspecified Status: Acute Assessment and Plan: Cr 11.5 on admission with BUN 139. Suspect related to dehydration with on-going lisinopril use coupled with HoTN causing ATN. Suspect n/v related to the worsening renal failure since recent onset but may have accelerated her renal failure. Also with component of urine retention but unclear if this was contributing to the TATE. 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 The renal US normal. Patient with metabolic acidosis related to the TATE. Serum bicarb normal at 28, BUN 119 and Cr better today at 8.6 from the IV fluids. UOP 1100mL yesterday and 600mL today thus far. Galvan secured for strict I/O. Appreciate nephrology input. Workup in progress (3) Rhabdomyolysis: Code(s): M62.82 - Rhabdomyolysis Status: Acute Assessment and Plan: TCK 2141. Etiology unclear. Poor renal clearance more likely then the etiology of her TATE. TCK better at 1000. Continue IV fluids. Follow. (4) Urinary retention with incomplete bladder emptying: Code(s): R33.9 - Retention of urine, unspecified Status: Acute Assessment and Plan: When the patient arrived to the ER, she was unable to produce a urine specimen and had a straight cath that obtained over 500 mL of urine. When she arrived on the floor, she was again having difficulty producing a urine specimen and had almost 500 mL of urine when Galvan catheter was placed. Cr slowly improving but felt less likely related to urine retention. Continue Galvan catheter for now. Voiding trial closer to discharge. (5) Metabolic acidosis with increased anion gap and reduced excretion of inorganic acids: Code(s): E87.2 - Acidosis Status: Acute Assessment and Plan: Serum bicarb 17 on admission. Related to TATE. Serum bicarb normal now with Bicarb IV with serum bicarb up to 28 today. Change IV fluids? Follow (6) Hyperkalemia: Code(s): E87.5 - Hyperkalemia Status: Acute Assessment and Plan: Potassium 5.3 on admission related to TATE. Potassium better and normal now. Follow (7) Nausea & vomiting: Qualifiers: Vomiting Intractability: non-intractable Vomiting type: unspecified Qualified Code(s): R11.2 - Nausea with vomiting, unspecified Code(s): R11.2 - Nausea with vomiting, unspecified Status: Acute Assessment and Plan: As above. Symptoms better. Eating 25-50% of meals. Continue current diet and follow. (8) Chest pain: Code(s): R07.9 - Chest pain, unspecified Status: Acute Assessment and Plan: Patient had substernal CP that was pleuritic. Pulmonary perfusion study showing decreased perfusion in the left lower lobe and lung apices that was low probability for PE. EKG showing LAD with poor R wave progression. Trop elevated at 0.051 but trending down now. Continue ASA. E
[2021-03-26 11:25] LABS: CRP 6.8 mg/dL (<1.0)
[2021-03-26 11:29] LABS: Complement C3 95 mg/dL (88-165)
[2021-03-26 12:02] LABS: HIV 1/2 Ab P24 Ag Result Negative (Negative)
[2021-03-26 12:08] LABS: Erythrocyte Sedimentation Rate 85 mm/hr (0-20)
--- NOTE | 2021-03-26 12:24 | PC.NURSE ---
Notified Dr. Bryan of patient's BP of 84/49, retook it manually and got 82/50. New order for 500ml bolus, recheck BP after completion and call MD with BP
--- NOTE | 2021-03-26 12:31 | PM.PNNEP ---
Progress Note: A&P Assessment and Plan (1) Acute renal failure: Qualifiers: Acute renal failure type: unspecified Qualified Code(s): N17.9 - Acute kidney failure, unspecified Code(s): N17.9 - Acute kidney failure, unspecified Status: Acute Assessment and Plan: The patient has acute kidney injury. Renal ultrasound is unremarkable urine electrolytes are non pre renal. Urine eosinophils are negative most likely this is dehydration causing the kidney disease. Possibly there is a component of ATN as well because she was at home for a couple of days while she was sick. Her CPK was elevated mildly but is down to 1000 today. Will check another urinalysis to see if there is still blood in her urine And see what the pH is. In the meantime will continue the bicarb drip. her creatinine has improved slowly. (2) Rhabdomyolysis: Code(s): M62.82 - Rhabdomyolysis Status: Acute Assessment and Plan: CPK is mildly high. Repeat Is improved (3) Hypotension (arterial): Qualifiers: Hypotension type: hypotension due to hypovolemia Qualified Code(s): I95.89 - Other hypotension; E86.1 - Hypovolemia Code(s): I95.9 - Hypotension, unspecified Status: Acute Assessment and Plan: Blood pressure is better (4) Nausea & vomiting: Qualifiers: Vomiting type: unspecified Vomiting Intractability: non-intractable Qualified Code(s): R11.2 - Nausea with vomiting, unspecified Code(s): R11.2 - Nausea with vomiting, unspecified Status: Acute Assessment and Plan: her symptoms have improved (5) Hyperkalemia: Code(s): E87.5 - Hyperkalemia Status: Acute Assessment and Plan: resolved (6) Metabolic acidosis with increased anion gap and reduced excretion of inorganic acids: Code(s): E87.2 - Acidosis Status: Acute Assessment and Plan: lactic acid is normal. Perhaps this is from uremic poisons. The anion gap has just about normalized. Will continue to follow. (7) Urinary retention with incomplete bladder emptying: Code(s): R33.9 - Retention of urine, unspecified Status: Acute Assessment and Plan: She has a Galvan catheter in Subjective Date/time seen: 03/26/21 12:31 Interval history: patient feels much better. No chest pain or shortness of breath. No dizziness nausea or vomiting. Review of Systems Cardiovascular: Cardiovascular: Reports no additional cardiovascular complaints Respiratory: Respiratory: Reports no additional respiratory complaints Gastrointestinal: Gastrointestinal: Reports no additional gastrointestinal complaints Genitourinary: Genitourinary: Reports no additional female genitourinary complaints Exam Narrative: Exam Narrative: WDWN in NAD skin no rash head ncat lungs clear cor reg no rub abd BS+ nontender and soft ext no edema. Objective Data Vital Signs Vital Signs: Vital Signs - 24 hr 03/25/21 14:00 03/25/21 16:00 03/25/21 18:00 Temperature 36.3 C L Pulse Rate 93 91 93 Respiratory Rate 20 Blood Pressure 101/69 Pulse Oximetry 99 03/25/21 19:33 03/25/21 20:00 03/25/21 22:00 Temperature 36.4 C L Pulse Rate 94 93 97 Respiratory Rate 20 Blood Pressure 118/75 Pulse Oximetry 95 03/25/21 23:56 03/26/21 00:00 03/26/21 02:00 Temperature 36.2 C L 36.2 C L Pulse Rate 97 95 92 Respiratory Rate 16 16 Blood Pressure 96/53 L 96/53 L Pulse Oximetry 96 96 03/26/21 04:00 03/26/21 06:00 03/26/21 08:00 Temperature 35.8 C L Pulse Rate 92 91 90 Respiratory Rate 18 Blood Pressure 126/62 Pulse Oximetry 95 98 03/26/21 08:14 03/26/21 08:42 03/26/21 10:00 Temperature 36.8 C Pulse Rate 89 81 Respiratory Rate 21 H Blood Pressure 102/64 Pulse Oximetry 91 98 Intake/Output Intake/Output: Intake & Output 03/23/21 03/24/21 03/25/21 03/26/21 23:59 23:59 23:59
[2021-03-26] MEDS: SODIUM CHLORIDE 0.9% IV 500 ML IV CONT (12:34)
[2021-03-26 12:38] LABS: Hepatitis B Surface Antigen Negative (Negative)
[2021-03-26 12:43] LABS: Hepatitis B Core IgM Result Negative (Negative)
[2021-03-26 12:55] LABS: Hepatitis B Surface Anti Res Negative; Hepatitis C Virus Antibody Negative (Negative)
--- NOTE | 2021-03-26 13:15 | PC.NURSE ---
Notified Dr. Bryan of Bp after bolus of /. Pt asymptomatic. Returned from chair to bed. New orders to place patient back on bedrest for remainder of today and call with any low BP's
[2021-03-26 13:36] LABS: Add Urine Microscopic? YES; Appearance Urine Clear (Clear); Bilirubin Urine Negative (Negative); Blood Urine 2+ (Negative); Color Urine Yellow (Yellow); Glucose Urine UA Negative (Negative); Ketones Urine Negative (Negative); Leukocyte Esterase Ur 2+ LEU/UL (NEGATIVE); Mucus Urine Rare /lpf; Nitrate Urine Negative (Negative); Protein Urine Negative (Negative); Specific Grav Ur 1.012 (1.001-1.035); Squamous Epithelial Cell Urine Rare /hpf (Few); Transitional Epi Cells Urine Rare /hpf (None Seen); Urobilinogen Urine Negative mg/dL (<2.0); WBC Urine 31-50 /hpf (0-3)
[2021-03-26] MEDS: traZODone HCL 50 MG TABLET 150 MG PO (20:07)
[2021-03-27] VITALS (10 sets, daily range): BP systolic 115–151; BP diastolic 60–88; PULSE 83–95; RESP 16–18; TEMP 36.1–36.6; O2SAT 96–100
--- NOTE | 2021-03-27 02:21 | PC.NURSE ---
This patient, Taylor Daugherty, was transferred to [facility] on 03/27/21 at 0221. Personal belongings sent with patient. Report given to FELIPE Bond. Appropriate documentation sent with patient.
--- NOTE | 2021-03-27 02:38 | PC.NURSE ---
0220 PT TRANSFERRED FROM IMU TO 2 MEDICAL ROOM 240 IN HOSPITAL BED. PT RESTING COMFORTABLY CURRENTLY ON A SLEEP STUDY.
[2021-03-27] MEDS: SODIUM BICARBONATE 8.4% 150 MEQ in DEXTROSE 5% 1,000 ML 950 ML 100 MEQ IV CONT (03:03)
[2021-03-27 05:15] LABS: Basophils Percent Auto 0.6 % (0.2-1.2); Eosinophils Absolute Auto 0.2 K/mm3 (0-0.3); Eosinophils Percent Auto 3.1 % (0-4.4); Hematocrit 35.1 % (37.0-47.0); Immature Granulocyte Absolute 0.11 K/mm3 (0.00-0.031); Immature Granulocyte Percent A 1.5 % (0-0.5); Lymphocytes Absolute Auto 1.46 K/mm3 (0.9-3.2); Lymphocytes Percent Auto 20.3 % (18.3-44.2); Mean Corpuscular HGB Conc 34.2 g/dl (32-36); Mean Corpuscular Hemoglobin 31.2 pg (26-34); Mean Corpuscular Volume 91.2 fl (80-100); Mean Platelet Volume 9.6 fl (7.4-10.4); Monocytes Absolute Auto 0.8 K/mm3 (0.1-0.6); Monocytes Percent Auto 11.3 % (2.6-8.5); Neutrophils Absolute Auto 4.6 K/mm3 (1.3-6.7); Neutrophils Percent Auto 63.2 % (45.5-73.1); Platelet Count Result 240 k/mm3 (150-375); Red Blood Count 3.85 M/mm3 (4.2-5.4); Red Cell Distribution Width 12.9 % (11.5-14.5); White Blood Count 7.2 K/mm3 (4.5-10.0)
[2021-03-27 06:04] LABS: Albumin Level 2.7 g/dL (3.5-5.1); Anion Gap 9 mmol/L (8-16); Blood Urea Nitrogen 111 mg/dL (7-17); Calcium 7.5 mg/dL (8.4-10.2); Carbon Dioxide 35 mmol/L (22-30); Chloride 91 mmol/L (98-107); Estimated CRCL calculation 11 ml/min; Estimated Glomerular Filt Rate 6; Glucose 107 mg/dL (65-105); Phosphorus 6.7 mg/dL (2.5-4.5); Potassium 3.3 mmol/L (3.4-5.0); Sodium 135 mmol/L (137-145)
[2021-03-27 06:17] LABS: Alanine Aminotransferase 32 U/L (4-35); Albumin Level 2.7 g/dL (3.5-5.1); Alkaline Phosphatase 57 U/L (38-126); Anion Gap 8 mmol/L (8-16); Aspartate Amino Transferase 46 U/L (14-36); Bilirubin,Total 0.8 mg/dL (0.2-1.3); Blood Urea Nitrogen 110 mg/dL (7-17); Calcium 7.6 mg/dL (8.4-10.2); Carbon Dioxide 35 mmol/L (22-30); Chloride 91 mmol/L (98-107); Creatine Kinase 694 U/L (30-135); Estimated CRCL calculation 11 ml/min; Estimated Glomerular Filt Rate 6; Glucose 106 mg/dL (65-105); Lipase 409 U/L (23-300); Potassium 3.3 mmol/L (3.4-5.0); Sodium 134 mmol/L (137-145)
[2021-03-27] MEDS: ASPIRIN 81 MG CHEWABLE TABLET PO (09:18)
[2021-03-27] MEDS: ENOXAPARIN 30 MG/0.3 ML SYRINGE SUB-Q ×2 (09:18→20:23)
[2021-03-27] MEDS: QUEtiapine FUMARATE 100 MG TABLET PO (09:19)
[2021-03-27] MEDS: SODIUM CHLORIDE 0.9% IV 1,000 ML 100 ML IV CONT ×2 (09:19→19:32)
[2021-03-27] MEDS: TOLNAFTATE 1% POWDER 45 GM BTL 1 APPLIC TOPICAL ×2 (09:19→20:23)
--- NOTE | 2021-03-27 10:13 | PM.PNNEP ---
Progress Note: A&P Assessment and Plan (1) Acute renal failure: Qualifiers: Acute renal failure type: unspecified Qualified Code(s): N17.9 - Acute kidney failure, unspecified Code(s): N17.9 - Acute kidney failure, unspecified Status: Acute Assessment and Plan: The patient has acute kidney injury. Renal ultrasound is unremarkable urine electrolytes are non pre renal. Urine eosinophils are negative most likely this is dehydration causing the kidney disease. Possibly there is a component of ATN as well because she was at home for a couple of days while she was sick. The creatinine is improving very slowly. Her CPK was elevated mildly And is now down to only 600. She still has blood in her urine and also some red blood cells,which is probably from something else. she does have pyuria. Because the CPK is lower now and Even though there is blood in the urine there is blood cells in the urine as well so I think it is unlikely that the elevated CK is causing the blood in the urine. I agree with stopping the bicarbonate. (2) Rhabdomyolysis: Code(s): M62.82 - Rhabdomyolysis Status: Acute Assessment and Plan: CPK is mildly high. Repeat Is improved Stop the bicarb. (3) Hypotension (arterial): Qualifiers: Hypotension type: hypotension due to hypovolemia Qualified Code(s): I95.89 - Other hypotension; E86.1 - Hypovolemia Code(s): I95.9 - Hypotension, unspecified Status: Acute Assessment and Plan: Blood pressure is better (4) Nausea & vomiting: Qualifiers: Vomiting type: unspecified Vomiting Intractability: non-intractable Qualified Code(s): R11.2 - Nausea with vomiting, unspecified Code(s): R11.2 - Nausea with vomiting, unspecified Status: Acute Assessment and Plan: her symptoms have improved (5) Hyperkalemia: Code(s): E87.5 - Hyperkalemia Status: Acute Assessment and Plan: resolved (6) Metabolic acidosis with increased anion gap and reduced excretion of inorganic acids: Code(s): E87.2 - Acidosis Status: Acute Assessment and Plan: Resolved (7) Urinary retention with incomplete bladder emptying: Code(s): R33.9 - Retention of urine, unspecified Status: Acute Assessment and Plan: She has a Galvan catheter in (8) Pyuria: Code(s): R82.81 - Pyuria Status: Acute Assessment and Plan: will check urine culture and put her on Cipro. Subjective Date/time seen: 03/27/21 10:13 Interval history: patient feels much better. No chest pain or shortness of breath. No swelling. She is eating pretty well. Exam Narrative: Exam Narrative: WDWN in NAD skin no rash head ncat lungs clear cor reg no rub abd BS+ nontender and soft ext no edema. Objective Data Vital Signs Vital Signs: Vital Signs - 24 hr 03/26/21 12:00 03/26/21 12:47 03/26/21 13:15 Temperature 36.6 C Pulse Rate 91 91 Respiratory Rate 23 H Blood Pressure 84/49 L 93/54 L Pulse Oximetry 99 99 03/26/21 14:00 03/26/21 14:45 03/26/21 16:00 Temperature 36.4 C Pulse Rate 91 88 Respiratory Rate 17 Blood Pressure 103/60 116/57 L Pulse Oximetry 99 03/26/21 18:00 03/26/21 20:00 03/26/21 23:02 Temperature 36.5 C Pulse Rate 91 93 Respiratory Rate 18 Blood Pressure 121/55 L Pulse Oximetry 99 97 03/27/21 00:00 03/27/21 02:41 03/27/21 04:00 Temperature 36.6 C 36.1 C L Pulse Rate 95 94 89 Respiratory Rate 18 16 Blood Pressure 125/60 146/67 H Pulse Oximetry 99 96 Intake/Output Intake/Output: Intake & Output 03/24/21 03/25/21 03/26/21 03/27/21 23:59 23:59 23:59 23:59 Intake Total 1000 1520 3790.5 939.5 Output Total 1100 1350 800 Balance 0317 451 8977.5 139.5 Meds/Results Medications: Active Medications Generic Name Dose Route Start Last Admin Trade Name Freq PRN Reason Sto
[2021-03-27] MEDS: DOXYCYCLINE HYCLATE 100 MG TABLET PO ×2 (11:42→20:23)
--- NOTE | 2021-03-27 12:07 | PM.IMPN ---
Progress Note: A&P Assessment and Plan (1) Hypotension (arterial): Qualifiers: Hypotension type: hypotension due to hypovolemia Qualified Code(s): I95.89 - Other hypotension; E86.1 - Hypovolemia Code(s): I95.9 - Hypotension, unspecified Status: Acute Assessment and Plan: Patient with profound HoTN on admission to 38/24. BP improved with 3L IV fluids in the ED and BP better controlled today. She takes clonidine and lisinopril at home which are on hold. Etiology unclear but consider severe dehydration. Sepsis seems less likely but did have fever to 102 prior to admission; no fevers since admission. CT Ch/A/P showing bibasliar atelectasis but not concerned for infectious source. COVID test negative. Continue IV fluids. Monitor closely. (2) Acute renal failure: Qualifiers: Acute renal failure type: unspecified Qualified Code(s): N17.9 - Acute kidney failure, unspecified Code(s): N17.9 - Acute kidney failure, unspecified Status: Acute Assessment and Plan: Cr 11.5 on admission with BUN 139. Suspect related to dehydration with on-going lisinopril use coupled with HoTN causing ATN. Suspect n/v related to the worsening renal failure since recent onset but may have accelerated her renal failure. Also with component of urine retention but unclear if this was contributing to the TATE. 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 The renal US normal. Patient with metabolic acidosis related to the TATE. Serum bicarb normal with BUN 110 and Cr better today at 6.9. UOP 1350mL yesterday and 800mL today thus far. Galvan secured for strict I/O. Appreciate nephrology input. Workup in progress. (3) Rhabdomyolysis: Code(s): M62.82 - Rhabdomyolysis Status: Acute Assessment and Plan: TCK 2141. Etiology unclear. Poor renal clearance more likely then the etiology of her TATE. Repeat UA showing 2+Blood wiht 6-10 RBC but also 2+LE and -50WBC. UCx ordered. TCK better at 694. Continue IV fluids. Abx started. Follow. (4) Urinary retention with incomplete bladder emptying: Code(s): R33.9 - Retention of urine, unspecified Status: Acute Assessment and Plan: When the patient arrived to the ER, she was unable to produce a urine specimen and had a straight cath that obtained over 500 mL of urine. When she arrived on the floor, she was again having difficulty producing a urine specimen and had almost 500 mL of urine when Galvan catheter was placed. Cr slowly improving but felt less likely related to urine retention. Continue Galvan catheter for now. Voiding trial closer to discharge. (5) Metabolic acidosis with increased anion gap and reduced excretion of inorganic acids: Code(s): E87.2 - Acidosis Status: Acute Assessment and Plan: Serum bicarb 17 on admission. Related to TATE. Serum bicarb normal now with Bicarb IV with serum bicarb up to 35 today. Change IV fluids to normal saline. Follow (6) Hyperkalemia: Code(s): E87.5 - Hyperkalemia Status: Acute Assessment and Plan: Potassium 5.3 on admission related to TATE. Potassium better now. Follow (7) Nausea & vomiting: Qualifiers: Vomiting type: unspecified Vomiting Intractability: non-intractable Qualified Code(s): R11.2 - Nausea with vomiting, unspecified Code(s): R11.2 - Nausea with vomiting, unspecified Status: Acute Assessment and Plan: As above. Symptoms better. Tolerating oral intake. Continue current diet and follow. (8) Chest pain: Code(s): R07.9 - Chest pain, unspecified Status: Acute Assessment and Plan: Patient had substernal CP that was pleuritic. Pulmonary perfusion study showing decreased perfusion in the left lower lobe and lung apices that was low probability for PE. EKG showing LAD with poor R wave progression. Trop elevated at 0.051 but jesus
[2021-03-27] MEDS: traZODone HCL 50 MG TABLET 150 MG PO (20:23)
[2021-03-28] VITALS: BP 154/85; PULSE 90; PULSE 93; RESP 18; TEMP 36.1; O2SAT 98
[2021-03-28 04:00] VITALS: BP 149/81; PULSE 90; PULSE 94; RESP 16; TEMP 36.2; O2SAT 99
[2021-03-28 04:58] LABS: Hematocrit 37.6 % (37.0-47.0); Hemoglobin 12.1 g/dL (12.0-15.0); Mean Corpuscular HGB Conc 32.2 g/dl (32-36); Mean Corpuscular Hemoglobin 30.6 pg (26-34); Mean Corpuscular Volume 94.9 fl (80-100); Mean Platelet Volume 9.6 fl (7.4-10.4); Platelet Count Result 258 k/mm3 (150-375); Red Blood Count 3.96 M/mm3 (4.2-5.4); Red Cell Distribution Width 13.2 % (11.5-14.5); White Blood Count 7.8 K/mm3 (4.5-10.0)
[2021-03-28 05:16] LABS: Albumin Level 2.7 g/dL (3.5-5.1); Anion Gap 5 mmol/L (8-16); Blood Urea Nitrogen 90 mg/dL (7-17); Calcium 7.7 mg/dL (8.4-10.2); Carbon Dioxide 34 mmol/L (22-30); Chloride 99 mmol/L (98-107); Estimated CRCL calculation 14 ml/min; Estimated Glomerular Filt Rate 8; Glucose 109 mg/dL (65-105); Lipase 454 U/L (23-300); Magnesium 1.2 mg/dL (1.6-2.3); Phosphorus 5.5 mg/dL (2.5-4.5); Potassium 3.4 mmol/L (3.4-5.0); Sodium 138 mmol/L (137-145)
[2021-03-28] MEDS: SODIUM CHLORIDE 0.9% IV 1,000 ML 100 ML IV CONT (05:30)
[2021-03-28 08:00] VITALS: PULSE 90
[2021-03-28] MEDS: ENOXAPARIN 30 MG/0.3 ML SYRINGE SUB-Q (08:21)
[2021-03-28] MEDS: DOXYCYCLINE HYCLATE 100 MG TABLET PO (08:21)
[2021-03-28] MEDS: MAGNESIUM SULF 2 GM/WATER 50ML 2 GM/50 ML BAG IVPB (08:21)
[2021-03-28] MEDS: QUEtiapine FUMARATE 100 MG TABLET PO (08:21)
[2021-03-28] MEDS: ASPIRIN 81 MG CHEWABLE TABLET PO (08:21)
--- NOTE | 2021-03-28 09:06 | PM.IMPN ---
Progress Note: A&P Assessment and Plan (1) Hypotension (arterial): Qualifiers: Hypotension type: hypotension due to hypovolemia Qualified Code(s): I95.89 - Other hypotension; E86.1 - Hypovolemia Code(s): I95.9 - Hypotension, unspecified Status: Acute Assessment and Plan: Patient with profound HoTN on admission to 38/24. BP improved with 3L IV fluids in the ED and BP better controlled today. She takes clonidine and lisinopril at home which are on hold. Etiology unclear but consider severe dehydration. Sepsis seems less likely but did have fever to 102 prior to admission; no fevers since admission. CT Ch/A/P showing bibasilar atelectasis but not concerned for infectious source. COVID test negative. Continue IV fluids. Monitor closely. (2) Acute renal failure: Qualifiers: Acute renal failure type: unspecified Qualified Code(s): N17.9 - Acute kidney failure, unspecified Code(s): N17.9 - Acute kidney failure, unspecified Status: Acute Assessment and Plan: Cr 11.5 on admission with BUN 139. Suspect related to dehydration with on-going lisinopril use coupled with HoTN causing ATN. Suspect n/v related to the worsening renal failure since recent onset but may have accelerated her renal failure. Also with component of urine retention but unclear if this was contributing to the TATE. 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 The renal US normal. Patient with metabolic acidosis related to the TATE treated appropriately. Serum bicarb normal now. Renal functio improving with BUN 90 and Cr 5.2. UOP 2450mL yesterday and 1250mL today thus far. Post-ATN diuresis? Galvan secured for strict I/O. Appreciate nephrology input. Workup in progress. Remove Galvan and monitor for urine retention. (3) Rhabdomyolysis: Code(s): M62.82 - Rhabdomyolysis Status: Acute Assessment and Plan: TCK 2140. Etiology unclear. Poor renal clearance more likely then the etiology of her TATE. Repeat UA showing 2+Blood wiht 6-10 RBC but also 2+LE and -50WBC. UCx ordered. TCK better at 694. Continue IV fluids. (4) Urinary retention with incomplete bladder emptying: Code(s): R33.9 - Retention of urine, unspecified Status: Acute Assessment and Plan: When the patient arrived to the ER, she was unable to produce a urine specimen and had a straight cath that obtained over 500 mL of urine. When she arrived on the floor, she was again having difficulty producing a urine specimen and had almost 500 mL of urine when Galvan catheter was placed. Cr slowly improving but felt less likely related to urine retention. Will remove Galvan catheter for voiding trial. On abx for possible UTI. (5) Metabolic acidosis with increased anion gap and reduced excretion of inorganic acids: Code(s): E87.2 - Acidosis Status: Acute Assessment and Plan: Serum bicarb 17 on admission. Related to TATE. Stated on IV Bicarb. Serum bicarb normal so Bicarb IV stopped. Resolved. (6) Hyperkalemia: Code(s): E87.5 - Hyperkalemia Status: Acute Assessment and Plan: Potassium 5.3 on admission related to TATE. Potassium better now. Follow (7) Nausea & vomiting: Qualifiers: Vomiting Intractability: non-intractable Vomiting type: unspecified Qualified Code(s): R11.2 - Nausea with vomiting, unspecified Code(s): R11.2 - Nausea with vomiting, unspecified Status: Acute Assessment and Plan: As above. Symptoms better. Tolerating oral intake. Continue current diet and follow. (8) Chest pain: Code(s): R07.9 - Chest pain, unspecified Status: Acute Assessment and Plan: Patient had substernal CP that was pleuritic. Pulmonary perfusion study showing decreased perfusion in the left lower lobe and lung apices that was low probability for PE. EKG showing LAD with poor R wave
--- NOTE | 2021-03-28 09:41 | PM.PNNEP ---
Progress Note: A&P Assessment and Plan (1) Acute renal failure: Qualifiers: Acute renal failure type: unspecified Qualified Code(s): N17.9 - Acute kidney failure, unspecified Code(s): N17.9 - Acute kidney failure, unspecified Status: Acute Assessment and Plan: The patient has acute kidney injury. Renal ultrasound is unremarkable urine electrolytes are non pre renal. Urine eosinophils are negative most likely this is dehydration causing the kidney disease. Possibly there is a component of ATN as well because she was at home for a couple of days while she was sick. The creatinine is improving very slowly. the patient continues IV fluids. She now has a little bit of swelling. Will decrease the rate to 50. She is talking about discharging. I told it might be just a little too early. (2) Rhabdomyolysis: Code(s): M62.82 - Rhabdomyolysis Status: Acute Assessment and Plan: CPK is mildly high. Repeat Is improved off the bicarb. (3) Hypotension (arterial): Qualifiers: Hypotension type: hypotension due to hypovolemia Qualified Code(s): I95.89 - Other hypotension; E86.1 - Hypovolemia Code(s): I95.9 - Hypotension, unspecified Status: Acute Assessment and Plan: Blood pressure is better (4) Nausea & vomiting: Qualifiers: Vomiting type: unspecified Vomiting Intractability: non-intractable Qualified Code(s): R11.2 - Nausea with vomiting, unspecified Code(s): R11.2 - Nausea with vomiting, unspecified Status: Acute Assessment and Plan: Resolved (5) Hyperkalemia: Code(s): E87.5 - Hyperkalemia Status: Acute Assessment and Plan: resolved (6) Metabolic acidosis with increased anion gap and reduced excretion of inorganic acids: Code(s): E87.2 - Acidosis Status: Acute Assessment and Plan: Resolved (7) Urinary retention with incomplete bladder emptying: Code(s): R33.9 - Retention of urine, unspecified Status: Acute Assessment and Plan: She has a Galvan catheter in (8) Pyuria: Code(s): R82.81 - Pyuria Status: Acute Assessment and Plan: culture pending. on Cipro. Subjective Date/time seen: 03/28/21 09:41 Interval history: patient feels much better. No chest pain or shortness of breath. when she gets up in a chair she swells a little bit in the ankles. Exam Narrative: Exam Narrative: WDWN in NAD skin no rash head ncat lungs clear cor reg no rub abd BS+ nontender and soft ext Trace edema. Objective Data Vital Signs Vital Signs: Vital Signs - 24 hr 03/27/21 10:11 03/27/21 10:17 03/27/21 12:00 Temperature 36.1 C L Pulse Rate 89 84 Respiratory Rate 16 Blood Pressure 116/72 Pulse Oximetry 96 96 03/27/21 12:10 03/27/21 16:00 03/27/21 20:00 Temperature 36.3 C L 36.2 C L 36.1 C L Pulse Rate 88 85 91 Respiratory Rate 16 16 18 Blood Pressure 118/70 115/68 151/88 H Pulse Oximetry 96 98 100 03/28/21 00:00 03/28/21 04:00 Temperature 36.1 C L 36.2 C L Pulse Rate 93 94 Respiratory Rate 18 16 Blood Pressure 154/85 H 149/81 H Pulse Oximetry 98 99 Intake/Output Intake/Output: Intake & Output 03/25/21 03/26/21 03/27/21 03/28/21 23:59 23:59 23:59 23:59 Intake Total 1520 3790.5 2649.5 1590 Output Total 1100 1350 2450 1250 Balance 420 2440.5 199.5 340 Meds/Results Medications: Active Medications Generic Name Dose Route Start Last Admin Trade Name Freq PRN Reason Stop Dose Admin Aspirin 81 mg 03/25/21 14:40 03/28/21 08:21 Aspirin 81 Mg Chewable Tablet PO 81 mg DAILY@0800 [facility] Administration Doxycycline Hyclate 100 mg 03/27/21 10:30 03/28/21 08:21 Doxycycline Hyclate 100 Mg Tablet PO 04/02/21 21:01 100 mg Q12HR CHRISTINE Administration Enoxaparin Sodium 30 mg 03/25/21 09:00 03/28/21 08:21 Enoxaparin 30 Mg/0.3 Ml Syringe SUB-Q 30 mg
[2021-03-28 10:00] VITALS: BP 145/90; PULSE 90; RESP 18; TEMP 35.8; O2SAT 92
[2021-03-28 12:00] VITALS: PULSE 90
--- NOTE | 2021-03-28 14:02 | PC.NURSE ---
Pt requesting to be discharged. Dr Gaviria states, Patient is not ready to be discharged. Dr Bryan says that he will not be able to give the patient medical clearance to go home yet as her renal labs are still to high to go home safely. I told her that she may risk renal failure, severe kidney damage, possible necessity for later dialysis & possible if she leaves the hospital now and doesn't continue treatment. Per Dr Bryan's request, I instructed her to drink alot of water to help flush the kidneys and make sure that she continues to urinate. And, that she should return to the hospital as soon as possible. Pt states that her dog is not eating so she has to go today. Pt's central line & mathis were removed. Pt was given instructions regarding post-central line removal. Pt was walked down to the [facility] door while she rode the scooter that her roommate brought up for her. She left by private vehicle.
--- NOTE | 2021-03-28 16:12 | PM.DS ---
DS: Admitting Diagnosis Admitting Diagnosis Admitting Diagnosis: chest pain, fever, and nausea and vomiting DS: Discharge Diagnosis Discharge Diagnosis (1) Hypotension (arterial): Qualifiers: Hypotension type: hypotension due to hypovolemia Qualified Code(s): I95.89 - Other hypotension; E86.1 - Hypovolemia Code(s): I95.9 - Hypotension, unspecified Status: Acute Assessment and Plan: Patient with profound HoTN on admission to 38/24. BP improved with 3L IV fluids in the ED and BP better controlled today. She takes clonidine and lisinopril at home which we held. Etiology unclear but felt related to severe dehydration. Sepsis seemed less likely but did have fever to 102 prior to admission; no fevers documented here. CT Chest/A/P showing bibasilar atelectasis but no concern for infectious source. COVID test negative. BP improved with IV fluids. Patient was requesting discharge. I spoke with nephrology who felt it was to soon for discharge. I informed patient but she was insistent on discharge home. She has dogs at home that she needs to care for. Later in the day, she signed herself out against medical advise on 03/28/21. Was unable to provide education prior to her leaving. Did call and leave a message on 03/30/21 to discuss. (2) Acute renal failure: Qualifiers: Acute renal failure type: unspecified Qualified Code(s): N17.9 - Acute kidney failure, unspecified Code(s): N17.9 - Acute kidney failure, unspecified Status: Acute Assessment and Plan: Cr 11.5 on admission with BUN 139. Suspect related to dehydration with on-going lisinopril use coupled with HoTN causing ATN. Suspect n/v related to the worsening renal failure since recent onset but may have accelerated her renal failure. Also with component of urine retention but unclear if this was contributing to the TATE. 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 The renal US normal. Patient with metabolic acidosis related to the TATE that was treated appropriately and serum bicarb normalized. Renal function improved with BUN 90 and Cr 5.2. Nephrology consulted and appreciate their input. (3) Rhabdomyolysis: Code(s): M62.82 - Rhabdomyolysis Status: Acute Assessment and Plan: TCK 214. Etiology unclear. Poor renal clearance more likely then the etiology of her TATE. Repeat UA showing 2+Blood wiht 6-10 RBC but also 2+LE and 31-50WBC. TCK better at 694. UCx returned with 10-49K colonies of non-uropathogenic organism. (4) Urinary retention with incomplete bladder emptying: Code(s): R33.9 - Retention of urine, unspecified Status: Acute Assessment and Plan: When the patient arrived to the ER, she was unable to produce a urine specimen and had a straight cath that obtained over 500 mL of urine. When she arrived on the floor, she was again having difficulty producing a urine specimen and had almost 500 mL of urine when Galvan catheter was placed. Cr slowly improving. Unclear if related to urine retention. We removed Galvan catheter for voiding trial earlier on the day she signed out. (5) Metabolic acidosis with increased anion gap and reduced excretion of inorganic acids: Code(s): E87.2 - Acidosis Status: Acute Assessment and Plan: Serum bicarb 17 on admission. Related to TATE. Stated on IV Bicarb and serum bicarb normalized so Bicarb stopped. Resolved. (6) Hyperkalemia: Code(s): E87.5 - Hyperkalemia Status: Acute Assessment and Plan: Potassium 5.3 on admission related to TATE. Potassium normalized. Resolved. (7) Nausea & vomiting: Qualifiers: Vomiting Intractability: non-intractable Vomiting type: unspecified Qualified Code(s): R11.2 - Nausea with vomiting, unspecified Code(s): R11.2 - Nausea with vomiting, unspecified Status: Acute Assessment and Plan
[2021-03-29 21:54] LABS: Anti Glomerular Basement Memb <1.0 AI (<1.0); Complement Total CH50 >60 U/mL (31-60)
[2021-03-29 22:40] LABS: ANCA Screen Negative (Negative)
[2021-03-29 23:09] LABS: Albumin 2.3 g/dL (3.8-4.8); Alpha 1 Globulin 0.5 g/dL (0.2-0.3); Alpha 2 Globulin 0.7 g/dL (0.5-0.9); Beta 1 Globulin 0.3 g/dL (0.4-0.6); Gamma Globulin 0.6 g/dL (0.8-1.7); Protein, Total 4.7 g/dL (6.1-8.1)
[2021-03-30 21:05] LABS: Anti Streptolysin O Screen 72 IU/mL (<200)
[2021-03-31 07:27] LABS: Creatinine, Random Urine 79 mg/dL (20-275); Total Protein/Creatinine Ratio 405 mg/g creat (21-161)
--- NOTE | 2021-03-31 08:44 | PC.NURSE ---
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 Abnormal results faxed to Dr. Alfaro and shown to Dr. Bryan
[2021-03-31 18:31] LABS: Cryoglobulin, QL Negative (Negative)
--- NOTE | 2021-04-02 15:11 | PC.NURSE ---
ASO- WNL Cryoglobulin- not reportable DNA DS- WNL SIF- no M spike Strept DNABase- <95. Dr. Bryan aware.
== END 2021-03-28 13:18 | disposition left against medical advice (07) | DRG 469 ==
LOC: ANHED 21:06 → ANHIMU 03-25 03:21 → ANH2MED 03-31 10:26 → ANHIMU 03-31 10:26
PROVIDERS: Internal Medicine Nephrology; Admitting Provider Internal Medicine; Emergency Provider Emergency Medicine; PCP Internal Medicine; Visit Provider Internal Medicine
DX: N17.0 Acute kidney failure with tubular necrosis (principal); I95.89 Other hypotension; Z20.822 Contact with and (suspected) exposure to COVID-19; E86.1 Hypovolemia; M62.82 Rhabdomyolysis; E86.0 Dehydration; R33.9 Retention of urine, unspecified; R82.81 Pyuria; E87.2 Acidosis; E87.5 Hyperkalemia; R07.9 Chest pain, unspecified; R10.11 Right upper quadrant pain; M79.7 Fibromyalgia; R07.81 Pleurodynia; N63.20 Unspecified lump in the left breast, unspecified quadrant; J44.9 Chronic obstructive pulmonary disease, unspecified; G47.33 Obstructive sleep apnea (adult) (pediatric); H40.9 Unspecified glaucoma; G62.9 Polyneuropathy, unspecified; E78.00 Pure hypercholesterolemia, unspecified; M22.42 Chondromalacia patellae, left knee; E66.01 Morbid (severe) obesity due to excess calories; Z68.42 Body mass index [BMI] 45.0-49.9, adult; F32.9 Major depressive disorder, single episode, unspecified; Z98.42 Cataract extraction status, left eye; Z98.41 Cataract extraction status, right eye; Z87.891 Personal history of nicotine dependence
CPT/HCPCS: 36415; 36556; 36600; 71250; 74176; 76705; 76775; 78580; 80053; 80069; 81001; 82375; 82550; 82570; 82595; 82805; 83050; 83520; 83605; 83690; 83735; 83880; 84100; 84133; 84155; 84156; 84165; 84166; 84300; 84484; 85025; 85027; 85380; 85610; 85652; 85730; 85999; 86021; 86038; 86060; 86140; 86160; 86162; 86215; 86225; 86334; 86703; 86705; 86706; 86803; 87040; 87086; 87088; 87340; 93005; 94762; 96361; 96374; 96375; 97110; 97161; 97165; 97530; 97535; 99285; A9270; A9540; C1751; C8929; C9803; G0432; J1650; J2270; J3475; J7030; J7040; J7070; Q9957; U0003; U0005